=== PATIENT | female | born 1995 | race African-American/Black ===

== ENCOUNTER 2018-12-11 14:16 | Emergency (ER) | payer MEDICAID | END 2018-12-11 15:45 | disposition left against medical advice (07) | LOC: ER 14:16 | DX: Z53.21 Procedure and treatment not carried out due to patient leaving prior to being seen by health care provider (principal) ==

== ENCOUNTER 2023-05-16 12:40 | Emergency (ER) | payer MEDICAID ==
[~2023-05-16] VITALS: Ht 165.1 cm; Wt 54.0 kg
[2023-05-16 13:06] VITALS: BP 131/87; RESP 20; TEMP 98.5; O2SAT 100
[2023-05-16 13:16] VITALS: PULSE 110
[2023-05-16] MEDS ORDERED: PERM60CR4 TP (13:33)
== END 2023-05-16 13:54 | disposition home or self-care (01) ==
LOC: ER 12:40
DX: B86 Scabies (principal)
CPT/HCPCS: 99282